=== PATIENT | female | born 1940 | race Two or more races ===

== ENCOUNTER 2023-06-16 20:48 | Emergency (ER) | payer OTHER ==
[~2023-06-16] VITALS: Ht 162.6 cm; Wt 84.0 kg
[2023-06-16 22:14] VITALS: BP 164/78; PULSE 71; RESP 19; TEMP 98.3; O2SAT 95
== END 2023-06-16 22:15 | disposition home or self-care (01) ==
LOC: ER 20:48
DX: R04.0 Epistaxis (principal); Z88.8 Allergy status to other drugs, medicaments and biological substances
CPT/HCPCS: 30901